=== PATIENT | female | born 1955 | race Caucasian/White ===

== ENCOUNTER 2018-02-06 17:45 | Emergency (ER) | payer MEDICARE, OTHER ==
[2018-02-06] MEDS ORDERED: HYDROmorphone 0.5 MG/0.5 ML SYRINGE IVPUSH ONE (18:15)
[2018-02-06] MEDS ORDERED: Sodium Chloride 0.9% 1,000 ML IV SCH (18:15)
[2018-02-06] MEDS ORDERED: Metoclopramide 10 MG/2 ML SDV IVPUSH ONE (18:16)
--- NOTE | 2018-02-06 18:21 | EDM.PDOC ---
ED HPI GENERAL MEDICAL PROBLEM - General Chief Complaint: Trauma Stated Complaint: FELL HIT RIB CAGE Time Seen by Provider: 02/06/18 18:05 Source of Information: Reports: Patient, Family History Limitations: Reports: No Limitations (Spouse) - History of Present Illness INITIAL COMMENTS - FREE TEXT/NARRATIVE: 62-year-old female reports to the ED after tripping and falling over her vacuum cleaner and polisher at home about 1500 hrs. today. She states she landed on the body of the vacuum cleaner and polisher with her left ribs. Has pain and clicking sensation with deep breathing. He has worsened over the last 3 hours. Denies any hemoptysis. She has pain in her left upper abdomen as well. No pain in her upper shoulder. Patient has multiple sclerosis with right-sided amrita-paresis which limits her mobility due to foot drop. Left side is relatively unaffected. Onset: Today Onset Date: 02/06/18 Onset Time: 15:00 Duration: Hour(s): Location: Reports: Chest (Injury to left lateral chest wall), Abdomen (After upper quadrant of the abdomen) Quality: Reports: Ache Severity: Moderate (Currently rates her pain as 8 out of 10) Improves with: Reports: Rest Worsens with: Reports: Other (Deep breathing), Movement Context: Reports: Trauma (Tripped and fell at home landing on her vacuum cleaner and polisher.). Denies: Activity, Exercise, Lifting, Sick Contact Associated Symptoms: Reports: No Other Symptoms, Chest Pain, Shortness of Breath. Denies: Confusion, Cough, cough w sputum (She history of present illness), Diaphoresis, Fever/Chills, Headaches, Loss of Appetite, Malaise, Nausea/Vomiting, Rash (Taking a deep breath makes the pain worse), Seizure, Syncope, Weakness Treatments STAND IN: Reports: Other (see below) (None.) Left Chest Pain Score (Numeric/FACES): 8 - Related Data Allergies Allergy/AdvReac Type Severity Reaction Status Date / Time codeine Allergy Vomiting Verified 02/06/18 18:01 metformin Allergy Vomiting Verified 02/06/18 18:01 promethazine [From Phenergan] Allergy Vomiting Verified 02/06/18 18:01 Sulfa (Sulfonamide Allergy Hives Verified 02/06/18 18:01 Antibiotics) Home Meds: Home Meds oxyCODONE HCl/Acetaminophen [Percocet 5-325 mg Tablet] 1 - 2 each PO Q4H PRN # 20 tablet 02/06/18 [Rx] Past Medical History Respiratory History: Reports: Other (See Below) Other Respiratory History: abscessed of lung d/t cracked rib [employer] History: Reports: Other OB/BYN History: c section Neurological History: Reports: MS (Has multiple sclerosis. Initial flareup cause significant right-sided hemiparesis for which she is never fully recovered. She has a footdrop on that side and weakness of her right upper extremity. Of note she is right-hand dominant. The left side is relatively good. ) - Past Surgical History Female Surgical History: Reports: Section (3.) Musculoskeletal Surgical History: Reports: Hip Replacement, Knee Replacement, Other (See Below) Social & Family History - Family History Family Medical History: Noncontributory - Tobacco Use Smoking Status *Q: Never Smoker - Recreational Drug Use Recreational Drug Use: No - Living Situation & Occupation Living situation: Reports: Occupation: Disabled Review of Systems - Review of Systems Review Of Systems: See Below Constitutional: Reports: No Symptoms Eyes: Reports: Glasses Ears: Reports: No Symptoms Nose: Reports: No Symptoms Mouth/Throat: Reports: No Symptoms Respiratory: Reports: Shortness of Breath, Pleuritic Chest Pain. Denies: Wheezing, Cough, Sputum, Hemoptysis Cardiovascular: Reports: No Symptoms GI/Abdominal: Reports: Abdominal Pain Genitourinary: Reports: No Symptoms (Left upper quadrant abdominal pain.) Musculoskeletal: Reports: Other (Left-sided foot drop due to MS. 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 ), Other ( Right-sided weakness from MS. Right upper extremity is moderately affected with difficulty feeding herself with her right hand. Of note she is right-hand dominant.) Psychiatric: Reports: No Symptoms (Chronically) ED EXAM, GENERAL - Physical Exam Exam: See Below Exam Limited By: No Limitations General Appearance: Alert, Moderate Distress (Appears to be in significant discomfort.) Head: Atraumatic, Normocephalic Neck: Normal Inspection, Supple, Full Range of Motion. No: Lymphadenopathy (L) , Lymphadenopathy (R) Respiratory/Chest: Lungs Clear, Normal Breath Sounds, Respiratory Distress ( Mild tachypnea at rest 20/m.), Other (No palpable subcutaneous emphysema. Pain localized to ribs 7, 8, 9, and 10th ribs.) Cardiovascular: Normal Peripheral Pulses, Regular Rate, Rhythm, No Edema, No Murmur GI/Abdominal: Tender (Tender left upper quadrant of the abdomen. Mild guarding present. Concern therefore splenic injury exists), Abnormal Bowel Sounds ( Decreased bowel sounds.) Back Exam: Normal Inspection, Full Range of Motion. No: CVA Tenderness (L), CVA Tenderness (R) Extremities: Normal Inspection, Normal Range of Motion, Other (Tenderness over the left wrist and hand but clinically no fractures.) Neurological: Alert, Oriented, CN II-XII Intact, Normal Cognition, Other ( Patient has right-sided hemiparesis for multiple sclerosis including a foot drop. She has weakness of her right upper extremity graded 4 out of 5 motor power and tone. She has increased reflexes in the right upper extremity and right lower extremity. She has sustained clonus on the right foot.). No: Normal Gait Psychiatric: Normal Affect (She has a mild right hemiparesis post CVA), Normal Mood Skin Exam: Warm, Dry, Intact, Normal Color, No Rash Course - Vital Signs Last Recorded V/S: Last Vital Signs Temp 36.5 C 02/06/18 17:58 Pulse 97 02/06/18 17:58 Resp 20 02/06/18 17:58 BP 159/100 H 02/06/18 17:58 Pulse Ox 97 02/06/18 17:58 - Orders/Labs/Meds Orders: Active Orders 24 hr Category Date Time Status PATIENT RETYPE [BBK] Stat Lab 02/06/18 18:25 Results TYPE AND SCREEN [BBK] Stat Lab 02/06/18 18:25 Results URINALYSIS W/MICROSCOPIC [UA W/MICROSCOPIC] [URIN] Stat Lab 02/06/18 18:15 Ordered Sodium Chloride 0.9% [Normal Saline] 1,000 ml Med 02/06/18 18:15 Active IV ASDIRECTED Sodium Chloride 0.9% [Saline Flush] Med 02/06/18 18:30 Active 10 ml FLUSH ONETIME PRN Medication Orders Sodium Chloride (Normal Saline) 1,000 mls @ 150 mls/hr IV ASDIRECTED JUTSO Last Admin: 02/06/18 18:33 Dose: 150 mls/hr Sodium Chloride (Saline Flush) 10 ml FLUSH ONETIME PRN PRN Reason: IV FLUSH Last Admin: 02/06/18 19:27 Dose: 10 ml Labs: Laboratory Tests 02/06/18 02/06/18 02/06/18 Range/Units 18:25 18:25 18:25 WBC 7.45 (3.98-10.04) K/mm3 RBC 5.56 H (3.98-5.22) M/mm3 Hgb 15.2 (11.2-15.7) gm/L Hct 46.2 H (34.1-44.9) % MCV 83.1 (79.4-94.8) fl MCH 27.3 (25.6-32.2) pg MCHC 32.9 (32.2-35.5) g/dl RDW Std Deviation 43.1 (36.4-46.3) fL Plt Count 325 (182-369) K/mm3 MPV 9.5 (9.4-12.3) fl Neutrophils % (Manual) 64 H (40-60) % Band Neutrophils % 0 (0-10) % Lymphocytes % (Manual) 24 (20-40) % Atypical Lymphs % 1 % Monocytes % (Manual) 9 (2-10) % Eosinophils % (Manual) 2 (0.7-5.8) % Basophils % (Manual) 0 L (0.1-1.2) Platelet Estimate Adequate Plt Morphology Comment Normal RBC Morph Comment Normal PT 9.6 (9.5-12.1) SECONDS INR < 0.93 Sodium 135 L (136-145) mEq/L Potassium 4.2 (3.5-5.1) mEq/L Chloride 100 (98-107) mEq/L Carbon Dioxide 25 (21-32) mEq/L Anion Gap 14.2 (5-15) BUN 19 H (7-18) mg/dL Creatinine 0.8 (0.55-1.02) mg/dL Est Cr Clr Drug Dosing 74.49 mL/min Estimated GFR (MDRD) > 60 (>60) mL/min BUN/Creatinine Ratio 23.8 H (14-18) Glucose 182 H (80-115) mg/dL Calcium 9.8 (8.5-10.1) mg/dL Total Bilirubin 0.5 (0.2-1.0) mg/dL AST 19 (15-37) U/L ALT 33 (14-59) U/L Alkaline Phosphatase 120 H (46-116) U/L Total Protein 8.0 (6.4-8.2) g/dl Albumin 4.1 (3.4-5.0) g/dl Globulin 3.9 gm/dL Albumin/Globulin Ratio 1.1 (1-2) Amylase 79 (25-115) U/L Blood Type Gel Antibody Screen 02/06/18 Range/Units 18:25 WBC (3.98-10.04) K/mm3 RBC (3.98-5.22) M/mm3 Hgb (11.2-15.7) gm/L Hct (34.1-44.9) % MCV (79.4-94.8) fl MCH (25.6-32.2) pg MCHC (32.2-35.5) g/dl RDW Std Deviation (36.4-46.3) fL Plt Count (182-369) K/mm3 MPV (9.4-12.3) fl Neutrophils % (Manual) (40-60) % Band Neutrophils % (0-10) % Lymphocytes % (Manual) (20-40) % Atypical Lymphs % % Monocytes % (Manual) (2-10) % Eosinophils % (Manual) (0.7-5.8) % Basophils % (Manual) (0.1-1.2) Platelet Estimate Plt Morphology Comment RBC Morph Comment PT (9.5-12.1) SECONDS INR Sodium (136-145) mEq/L Potassium (3.5-5.1) mEq/L Chloride (98-107) mEq/L Carbon Dioxide (21-32) mEq/L Anion Gap (5-15) BUN (7-18) mg/dL Creatinine (0.55-1.02) mg/dL Est Cr Clr Drug Dosing mL/min Estimated GFR (MDRD) (>60) mL/min BUN/Creatinine Ratio (14-18) Glucose (80-115) mg/dL Calcium (8.5-10.1) mg/dL Total Bilirubin (0.2-1.0) mg/dL AST (15-37) U/L ALT (14-59) U/L Alkaline Phosphatase (46-116) U/L Total Protein (6.4-8.2) g/dl Albumin (3.4-5.0) g/dl Globulin gm/dL Albumin/Globulin Ratio (1-2) Amylase (25-115) U/L Blood Type A POSITIVE Gel Antibody Screen Negative Meds: Medications Generic Name Dose Route Start Last Admin Trade Name Freq PRN Reason Stop Dose Admin Sodium Chloride 1,000 mls @ 150 mls/hr 02/06/18 18:15 02/06/18 18:33 Normal Saline IV 150 mls/hr ASDIRECTED JUSTO Administration Sodium Chloride 10 ml 02/06/18 18:30 02/06/18 19:27 Saline Flush FLUSH 10 ml ONETIME PRN Administration IV FLUSH Discontinued Medications Generic Name Dose Route Start Last Admin Trade Name Freq PRN Reason Stop Dose Admin Hydromorphone HCl 0.5 mg 02/06/18 18:15 02/06/18 18:36 Dilaudid IVPUSH 02/06/18 18:16 0.5 mg ONETIME ONE Administration Iopamidol 150 ml 02/06/18 18:30 02/06/18 19:26 Isovue-300 (61%) IVPUSH 02/06/18 18:31 125 ml ONETIME ONE Administration Metoclopramide HCl 7.5 mg 02/06/18 18:16 02/06/18 18:34 Reglan IVPUSH 02/06/18 18:17 7.5 mg ONETIME ONE Administration - Radiology Interpretation Free Text/Narrative:: 62-year-old female presents to the ED after tripping and falling at home. She landed hard on the vacuum cleaner and polisher with her left lateral ribs. Pain is localized to rib 7,8,9 and 10. She is also moderately tender in the left upper quadrant of the abdomen raising concern for possible splenic injury. No septal face emphysema is evident. Good air entry to both lung seo. Plan IV normal saline 150 mils per hour. Given Dilaudid 0.5 mg IV with Reglan 7.5 mg IV for pain and nausea relief. Plan is to CT chest abdomen pelvis with IV contrast only. - Re-Assessments/Exams Free Text/Narrative Re-Assessment/Exam: 02/06/18 19:21 Labs are partially back. Total white count is 7.45. Differential is pending. Hemoglobin is good at 15.2 with hematocrit of 46.2. White count is 325,000. Sodium was 135 with potassium of 4.2. Toward 100 with bicarbonate 25. Anion gap is 14.2. BUN is slightly elevated at 19. Creatinine is 0.8. Glucose is elevated at 182. Calcium is 9.8. Liver function normal alk phosphatase slightly elevated at 120. Amylase normal at 79. Blood type is A positive. Awaiting her CT to be done. 02/06/18 20:03 CT scan of the chest abdomen and pelvis is essentially normal. No rib fractures are identified no pulmonary contusions were identified. CT the abdomen shows spleen and kidney and liver to be intact. No solid organ injuries. Bowel contains increased amount of stool throughout. No free fluid is identified within the floor the pelvis. Patient and reassured in this regard. Since she has multiple sclerosis and a right-sided paresis I do not advise any Paul wrap wrapping for her rib cage. She has some hydrocodone and tramadol tablets at home I will write a prescription for Percocet tablets and she can fill this if needed. She is advised she will likely have to sleep in the easy chair for the next week or 10 days as will be too painful to get in and out of bed has essentially she is [id number] since her MS has weakened her right side. Departure - Departure Time of Disposition: 20:05 Disposition: Home, Self-Care 01 Condition: Fair Clinical Impression: Contusion of left chest wall Qualifiers: Encounter type: initial encounter Qualified Code(s): S20.212A - Contusion of left front wall of thorax, initial encounter - Discharge Information Prescriptions: oxyCODONE HCl/Acetaminophen [Percocet 5-325 mg Tablet] 1 - 2 each PO Q4H PRN # 20 tablet PRN Reason: pain relief. Instructions: Contusion, [id number] Referrals: Nuria Barreto PA-C [Primary Care Provider] - Forms: ED Department Discharge Additional Instructions: Evaluation the emergency room today in regards to fall with blunt force trauma to your left lateral rib cage. And for fractured ribs was certainly evident on examination. Evidence of pain in the left upper quadrant of the abdomen also raise suspicion for possible splenic or renal injury. Lab work proved to be completely normal. CT of the chest abdomen pelvis done with intravenous contrast reveals no rib fractures or bruised lungs. Heart shadow is normal. CT the abdomen and pelvis reveals no solid organ injuries in the spleen kidney and liver are all within normal limits. There is slightly increased stool throughout the colon. I would suggest when you're on the pain pills for the next week to 10 days that you take MiraLAX powder 17 g once daily to prevent worsening constipation issues while on the pain medication. Expect improvement over the next 10-14 days. She may well have to sleep in the easy chair for the next week or 10 days until he can get back into bed and out of bed comfortably. - My Orders Last 24 Hours: My Active Orders 02/06/18 18:15 URINALYSIS W/MICROSCOPIC [UA W/MICROSCOPIC] [URIN] Stat Sodium Chloride 0.9% [Normal Saline] 1,000 ml IV ASDIRECTED 02/06/18 18:25 PATIENT RETYPE [BBK] Stat TYPE AND SCREEN [BBK] Stat 02/06/18 18:30 Sodium Chloride 0.9% [Saline Flush] 10 ml FLUSH ONETIME PRN - Assessment/Plan Last 24 Hours: My Active Orders 02/06/18 18:15 URINALYSIS W/MICROSCOPIC [UA W/MICROSCOPIC] [URIN] Stat Sodium Chloride 0.9% [Normal Saline] 1,000 ml IV ASDIRECTED 02/06/18 18:25 PATIENT RETYPE [BBK] Stat TYPE AND SCREEN [BBK] Stat 02/06/18 18:30 Sodium Chloride 0.9% [Saline Flush] 10 ml FLUSH ONETIME PRN
[2018-02-06] MEDS ORDERED: Iopamidol 612 MG/ML 150 ML Bottle IVPUSH ONE (18:30)
[2018-02-06] MEDS ORDERED: Sodium Chloride 0.9% 10 ML Syringe FLUSH PRN (18:30)
--- NOTE | 2018-02-06 19:52 | CT ---
CT chest Technique: Multiple axial sections through the chest were obtained. Intravenous contrast was utilized. Comparison: No previous chest imaging is available. Findings: Lungs shows nothing acute. No pneumothorax or pleural effusions are seen. Mild coronary artery calcification is seen. Mediastinum and hilar regions are unremarkable. No pericardial effusion is seen. Bone window settings were reviewed which shows no discrete rib fracture. Scattered degenerative spurring is noted within the spine. No compression deformities are seen. Reconstructed sagittal images of the sternum appear intact. Impression: 1. Nothing acute is seen on CT study of the chest. Diagnostic code #1 CT abdomen and pelvis Technique: Multiple axial sections were obtained from above the dome of the diaphragm inferiorly through the pubic symphysis. Intravenous contrast was utilized. Delayed images were obtained through the bladder. Comparison: No previous abdominal imaging. Findings: Liver shows no focal parenchymal abnormality. Spleen appears within normal limits. Adrenal glands show no nodule. Pancreas appears normal. Gallbladder contains no calcified gallstones. Kidneys show contrast enhancement without hydronephrosis. Very minimal cortical cyst measuring several millimeters is seen within the left kidney. Aorta shows atherosclerotic change without aneurysm. No retroperitoneal adenopathy is seen. No pelvic mass or adenopathy is noted. Artifact noted from left hip prosthesis. Delayed images shows contrast within the distal ureters and within the bladder. Mild increased stool is noted within the colon. Appendix not visualized with certainty. Bone window settings show scattered degenerative change within the spine. Nothing acute is appreciated within the thoracic spine or pelvis. Impression: 1. Incidental findings. Nothing acute is seen on CT study of the abdomen and pelvis. Diagnostic code #2
== END 2018-02-06 20:20 | disposition home or self-care (01) ==
LOC: JD.ED 17:45
DX: S20.212A Contusion of left front wall of thorax, initial encounter (principal); Z88.5 Allergy status to narcotic agent; Z88.8 Allergy status to other drugs, medicaments and biological substances; Z88.2 Allergy status to sulfonamides; W18.09XA Striking against other object with subsequent fall, initial encounter
CPT/HCPCS: 36415; 71260; 74177; 80053; 82150; 85007; 85027; 85610; 86850; 86900; 86901; 96361; 96374; 96375; 99284; J1170; J2765; J7040; J7050; Q9967